=== PATIENT | male | born 2005 | race Caucasian/White ===

== ENCOUNTER 2024-06-11 23:59 | Emergency (ER) | payer MEDICAID ==
[~2024-06-11] VITALS: Ht 167.6 cm; Wt 82.0 kg
[2024-06-12 00:36] VITALS: TEMP 37; O2SAT 100
[2024-06-12] MEDS: IBUPROFEN 400MG TABLET PO ONE (01:53)
[2024-06-12] MEDS: ACETAMINOPHEN 325MG TABLET PO ONE (03:51)
[2024-06-12] MEDS: BACITRACIN ZINC OINT UDPKT TOP ONE (03:51)
[2024-06-12] MEDS ORDERED: IBUP-2028 MT (03:59)
[2024-06-12] MEDS ORDERED: LIDO-53 TP (04:00)
[2024-06-12] MEDS ORDERED: BO1 TP (04:03)
[2024-06-12 04:27] VITALS: BP 128/78; PULSE 80; RESP 18; O2SAT 99
== END 2024-06-12 04:27 | disposition home or self-care (01) ==
LOC: ER 06-12 00:55
DX: S42.002A Fracture of unspecified part of left clavicle, initial encounter for closed fracture (principal); Z79.899 Other long term (current) drug therapy; V89.2XXA Person injured in unspecified motor-vehicle accident, traffic, initial encounter; Y93.89 Activity, other specified; Y92.89 Other specified places as the place of occurrence of the external cause; Y99.8 Other external cause status
CPT/HCPCS: 73030; 29240; 99284; Z7610